=== PATIENT | female | born 1985 | race American Indian/Alaskan Native ===

== ENCOUNTER 2019-03-06 08:52 | Emergency (ER) | payer OTHER ==
[2019-03-06 08:57] VITALS: BMI 20.7
[2019-03-06 10:11] LABS: BASO % 0.1 % (0.0-2.0); EOS # 0.1 K/uL (0.0-0.7); EOS % 1.2 % (0.0-4.0); LYMPH % 25.4 % (20.0-40.0); MEAN CELL VOLUME 94.1 fl (81.0-99.0); MEAN CORPUSCULAR HEMOGLOBIN 31.1 pg (27.0-31.0); MEAN CORPUSCULAR HGB CONC 33.1 g/dL (33.0-37.0); MEAN PLATELET VOLUME 8.7 fl (7.2-11.7); MONO # 0.4 K/uL (0.0-0.8); MONO % 5.3 % (0.0-10.0); NEUT # 5.3 K/uL (1.8-7.0); NRBC % 0.1 % (0.0-0.0); RBC 3.85 Mil/uL (3.80-5.20); RED CELL DISTRIBUTION WIDTH 12.9 % (11.5-14.5); WHITE BLOOD COUNT 7.7 K/uL (4.8-10.8)
[2019-03-06 10:23] LABS: BLOOD UREA NITROGEN 10 mg/dl (7-17); CALCIUM 8.9 mg/dL (8.4-10.2); GFR NON-AFRICAN AMERICAN > 60
[2019-03-06 10:28] LABS: PROTHROMBIN TIME 10.9 Seconds (9.8-13.1)
--- NOTE | 2019-03-06 10:33 | ED PDOC ---
HPI: Female Pain Time Seen by Provider: 03/06/19 09:11 Chief Complaint (Nursing): Female Genitourinary Chief Complaint (Provider): Female Genitourinary History Per: Patient History/Exam Limitations: no limitations Onset/Duration Of Symptoms: Days (x 5) Current Symptoms Are (Timing): Still Present Quality Of Discomfort: Cramping, "Pain" Associated Symptoms: Other (vaginal bleeding) Additional Complaint(s): 34 year old female with no significant medical history presents to the ED for evaluation of vaginal bleeding and abdominal cramping for 5 days. Patient reports last night the pain acutely worsened and she began to bleed heavily. She states she used 1 large tampon per hour until this morning. Patient takes the generic version of the control brand Blisovi and has been on control for approximately 10 years. Of note, patient reports she has been having "periods" every two weeks for last few months. Denies similar symptoms, trauma and other complaints. PMD: none provided Abnormal Vaginal Bleeding: Yes Last Menstral Period: 01/2019 : 0 Para: 0 Past Medical History Reviewed: Historical Data Vital Signs: Last Vital Signs Temp 98.5 F 03/06/19 08:56 Pulse 79 03/06/19 08:56 Resp 16 03/06/19 08:56 BP 107/68 03/06/19 08:56 Pulse Ox 100 03/06/19 08:56 Primary Care Provider: Non [facility] Provider, - Medical History PMH: No Chronic Diseases - Surgical History Surgical History: No Surg Hx - Family History Family History: States: Other Other Family History: anemia - Allergies Allergies/Adverse Reactions: Allergies Allergy/AdvReac Type Severity Reaction Status Date / Time No Known Allergies Allergy Verified 03/06/19 09:20 Review of Systems ROS Statement: Except As Marked, All Systems Reviewed And Found Negative Gastrointestinal: Positive for: Abdominal Pain Genitourinary Female: Positive for: Vaginal Bleeding Physical Exam - Reviewed Nursing Documentation Reviewed: Yes Vital Signs Reviewed: Yes - Physical Exam Appears: Positive for: Non-toxic, No Acute Distress Head Exam: Positive for: ATRAUMATIC, NORMAL INSPECTION, NORMOCEPHALIC Skin: Positive for: Normal Color, Warm, DRY Eye Exam: Positive for: EOMI, Normal appearance, PERRL Neck: Positive for: Normal, Painless ROM, Supple Cardiovascular/Chest: Positive for: Regular Rate, Rhythm. Negative for: Murmur Respiratory: Positive for: Normal Breath Sounds. Negative for: Respiratory Distress Gastrointestinal/Abdominal: Positive for: Normal Exam, Soft. Negative for: [place] Pelvic Exam: Positive for: External Exam Normal, Speculum Exam Normal (some blood, otherwise normal). Negative for: Active Bleeding Back: Positive for: Normal Inspection. Negative for: L CVA Tenderness, R CVA Tenderness Extremity: Positive for: Normal ROM. Negative for: Deformity Neurological/Psych: Positive for: Awake, Alert, Normal Tone, Oriented (x 3). Negative for: Motor/Sensory Deficits - Laboratory Results Result Diagrams: 03/06/19 10:00 03/06/19 10:00 Lab Results: PT 10.9 Seconds (9.8-13.1) 03/06/19 10:00 INR 1.0 03/06/19 10:00 APTT 32.0 Seconds (25.6-37.1) 03/06/19 10:00 - ECG O2 Sat by Pulse Oximetry: 100 (RA) Pulse Ox Interpretation: Normal - Progress Re-evaluation Time: 13:59 Condition: Re-examined, Improved Medical Decision Making Medical Decision Makin:37 Impression: vaginal bleeding and cramping Differential diagnoses include but are not limited to: dysfunctional uterine bleeding, uterine fibroid, tumor, polyp Initial Plan: --CBC --CMP --PT --PT --Pelvis/transvag US [facility] for pelvic exam. US FINDINGS: UTERUS: Measures 8.0 x 3.9 x 4.7 cm. No suspicious myometrial findings. Uterus is mildly enlarged. ENDOMETRIUM: Measures 23.0 mm in diameter. Uterus is markedly thickened with heterogeneous echotexture and questionable slightly hyperechoic nodule or mass measuring 1.8 x 1.6 x 1.5 cm. Finding could reflect retained hemorrhagic products of varying stages of degradation. Clinically correlate for potential missed . CERVIX: No cervical abnormality identified. RIGHT OVARY: Measures 3.0 x 1.4 x 2.0 cm. No solid mass. Normal flow. LEFT OVARY: Measures 3.2 x 1.8 x 1.4 cm. No solid mass. Normal flow. FREE FLUID: No significant free fluid noted. OTHER FINDINGS: None. IMPRESSION: Grossly abnormal endometrium is appreciated with heterogeneous parenchyma suspicious for hemorrhagic products of varying stages of degradation. Polyp or other endometrial mass is not excluded. Clinically correlate for potential missed as discussed above and possible retained products of conception though no definite suspicious color blood flow seen within the lumen. ----- Scribe Attestation: Documented by Alicia Watts, acting as a scribe for Anita Woody MD. Provider Scribe Attestation: All medical record entries made by the Scribe were at my direction and personally dictated by me. I have reviewed the chart and agree that the record accurately reflects my personal performance of the history, physical exam, medical decision making, and the department course for this patient. I have also personally directed, reviewed, and agree with the discharge instructions and disposition. Disposition - Clinical Impression Clinical Impression: DUB (dysfunctional uterine bleeding) - Patient ED Disposition Is Patient to be Admitted: No Doctor Will See Patient In The: Office Counseled Patient/Family Regarding: Studies Performed, Diagnosis, Need For Followup - Disposition Referrals: [facility] [Outside] Disposition: Routine/Home Disposition Time: 14:02 Additional Instructions: JJ LYONS, thank you for letting us take care of you today. Your provider was Anita Woody MD and you were treated for ABD PAIN;CRAMPING. The emergency medical care you received today was directed at your acute symptoms. If you were prescribed any medication, please fill it and take as directed. It may take several days for your symptoms to resolve. Return to the Emergency Department if your symptoms worsen, do not improve, or if you have any other problems. Please contact your doctor or call one of the physicians/clinics you have been referred to that are listed on the Patient Visit Information form that is included in your discharge packet. Bring any paperwork you were given at [facility] with you along with any medications you are taking to your follow up visit. Our treatment cannot replace ongoing medical care by a primary care provider outside of the emergency department. Thank you for allowing the [facility] team to be part of your care today. If you had an X-Ray or CT scan: A Radiologist will review the ED reading if any change in treatment is needed we will contact you. If you had a blood, urine, or wound culture: It will take several days for the results, if any change in treatment is needed we will contact you. Instructions: Heavy Periods
--- NOTE | 2019-03-06 11:58 | US ---
Date of service: 03/06/2019 HISTORY: vaginal bleeding crampin COMPARISON: None available. TECHNIQUE: Transabdominal and transvaginal pelvic ultrasound was performed with longitudinal and transverse images submitted for interpretation. FINDINGS: UTERUS: Measures 8.0 x 3.9 x 4.7 cm. No suspicious myometrial findings. Uterus is mildly enlarged. ENDOMETRIUM: Measures 23.0 mm in diameter. Uterus is markedly thickened with heterogeneous echotexture and questionable slightly hyperechoic nodule or mass measuring 1.8 x 1.6 x 1.5 cm. Finding could reflect retained hemorrhagic products of varying stages of degradation. Clinically correlate for potential missed . CERVIX: No cervical abnormality identified. RIGHT OVARY: Measures 3.0 x 1.4 x 2.0 cm. No solid mass. Normal flow. LEFT OVARY: Measures 3.2 x 1.8 x 1.4 cm. No solid mass. Normal flow. FREE FLUID: No significant free fluid noted. OTHER FINDINGS: None. IMPRESSION: Grossly abnormal endometrium is appreciated with heterogeneous parenchyma suspicious for hemorrhagic products of varying stages of degradation. Polyp or other endometrial mass is not excluded. Clinically correlate for potential missed as discussed above and possible retained products of conception though no definite suspicious color blood flow seen within the lumen.
[2019-03-06 14:00] VITALS: PULSE 78
[2019-03-06 15:17] VITALS: BP 128/78; RESP 21; TEMP 97.6; O2SAT 98
== END 2019-03-06 15:55 | disposition home or self-care (01) ==
LOC: H.ER 08:52
DX: N93.8 Other specified abnormal uterine and vaginal bleeding (principal)